=== PATIENT | female | born 1965 | race Caucasian/White ===

== ENCOUNTER → 2016-12-04 | Outpatient (CLI) | payer MEDICARE ==
[~2016-12-04] MED LIST: HEMORRHOID CREAM TD
== END | disposition home or self-care (01) ==
LOC: RADPV 11:45
PROVIDERS: ATTEND Family Medicine
DX: Z01.818 Encounter for other preprocedural examination (principal); I70.90 Unspecified atherosclerosis; M53.84 Other specified dorsopathies, thoracic region; N85.9 Noninflammatory disorder of uterus, unspecified
CPT/HCPCS: 71020

== ENCOUNTER → 2017-02-28 | Outpatient (CLI) | payer MEDICARE | END | disposition home or self-care (01) | LOC: RADPV 13:48 | PROVIDERS: ATTEND Family Medicine | DX: S50.02XA Contusion of left elbow, initial encounter (principal); X58.XXXA Exposure to other specified factors, initial encounter; Y93.89 Activity, other specified; Y92.89 Other specified places as the place of occurrence of the external cause; Y99.8 Other external cause status ==